=== PATIENT | male | born 1980 | race Caucasian/White ===

== ENCOUNTER 2020-11-20 13:41 | Inpatient (IN) | payer OTHER ==
[2020-11-20] MEDS ORDERED: CEFTRIAXONE 2 GM-D5W BAG 2 GM/50 ML BAG IVPB ONE (14:23)
[2020-11-20] MEDS ORDERED: CEFTRIAXONE 2 GM/100 ML BAG IVPB ONE (14:38)
[2020-11-20 14:43] LABS: BASO % 0.3 % (0-2.0); EOS % 0.1 % (0-4.5); HEMATOCRIT 35.6 % (35.4-49); HEMOGLOBIN 12.4 GM/dL (11.7-16.9); LYMPH % 3.9 % (8-40); MCHC 34.8 g/dl (32.0-35.9); MEAN CELL VOLUME 86.2 fl (80-96); MEAN PLT VOLUME 8.8 fl (7.5-11.1); NEUT % 88.7 % (42.8-82.8); PLATELET COUNT 174 10^3/uL (134-434); RBC 4.13 M/mm3 (4.00-5.60); RDW 12.1 % (11.9-15.9); WHITE BLOOD COUNT 15.4 K/mm3 (4.0-10.0)
[2020-11-20 14:50] LABS: INR 1.03 (0.83-1.09); PROTHROMBIN TIME (PATIENT) 12.5 SEC (9.7-13.0)
[2020-11-20 15:01] LABS: CHLORIDE 88 mmol/L (98-107); SODIUM 126 mmol/L (136-145)
[2020-11-20 15:03] LABS: ALBUMIN 3.2 g/dl (3.4-5.0); ANION GAP 14 MMOL/L (8-16); BLOOD UREA NITROGEN 9.3 mg/dL (7-18); CALCIUM 8.6 mg/dL (8.5-10.1); CO2 24 mmol/L (21-32)
[2020-11-20 15:06] LABS: SGOT/AST 14 U/L (15-37); SGPT/ALT 23 U/L (13-61)
[2020-11-20 15:07] LABS: CREATININE 0.8 mg/dL (0.55-1.3)
[2020-11-20 15:08] LABS: BILIRUBIN,TOTAL 0.6 mg/dL (0.2-1); TOT PROT 6.4 g/dl (6.4-8.2)
[2020-11-20 15:09] LABS: ALK PHOS 127 U/L (45-117)
[2020-11-20 15:29] LABS: ANISOCYTOSIS 1+; MACROCYTOSIS 0; OVALOCYTE 1+; PLATELET ESTIMATE NORMAL
[2020-11-20 15:45] LABS: GLUCOSE,RANDOM 477 mg/dL (74-106)
[2020-11-20] MEDS ORDERED: SODIUM CHLORIDE 0.9% 500 ML INFUS.BAG IV ONE (15:47)
[2020-11-20] MEDS ORDERED: INSULIN REGULAR HUMAN 100 UNITS/ML *VIAL IVPUSH ONE (15:47)
[2020-11-20] MEDS ORDERED: ACETAMINOPHEN 500 MG TABLET (FP) PO ONE (18:10)
[2020-11-20] MEDS ORDERED: ACETAMINOPHEN 500 MG TABLET (FP) ONE (19:12)
[2020-11-20] MEDS: INSULIN SLIDING SCALE (NOVOLOG) 1 VIAL SQ SCH (21:05)
[2020-11-20] MEDS: SODIUM CHLORIDE 1,000 ML IV SCH (21:16)
[2020-11-20] MEDS ORDERED: SENNOSIDES 8.6MG TABLET (FP) PO PRN (21:25)
[2020-11-21] MEDS ORDERED: CEFAZOLIN 1 GM/D5W 1 GM/50 ML BAG ONE (01:20)
[2020-11-21] MEDS: CEFAZOLIN 1 GM in DEXTROSE 5%-WATER - 50 ML IVPB SCH ×3 (01:30→17:12)
[2020-11-21 03:57] VITALS: BMI 24.4
[2020-11-21] MEDS ORDERED: MORPHINE SULFATE 2 MG/ML VIAL IM PRN (06:24)
[2020-11-21] MEDS: ACETAMINOPHEN 325 MG TABLET (FP) PO PRN ×4 (06:51→23:44)
[2020-11-21] MEDS ORDERED: INSULIN (NOVOLOG) ASPART 100 UNITS/ML 10ML VIAL ONE ×2 (06:52→17:25)
[2020-11-21] MEDS: INSULIN SLIDING SCALE (NOVOLOG) 1 VIAL SQ SCH ×4 (06:53→21:01)
[2020-11-21 07:17] LABS: BASO % 0.4 % (0-2.0); EOS % 0.2 % (0-4.5); HEMATOCRIT 30.7 % (35.4-49); HEMOGLOBIN 10.8 GM/dL (11.7-16.9); LYMPH % 4.8 % (8-40); MCH 30.4 pg (25.7-33.7); MCHC 35.2 g/dl (32.0-35.9); MEAN CELL VOLUME 86.4 fl (80-96); MEAN PLT VOLUME 8.9 fl (7.5-11.1); MONO % 9.4 % (3.8-10.2); NEUT % 85.2 % (42.8-82.8); PLATELET COUNT 162 10^3/uL (134-434); RBC 3.55 M/mm3 (4.00-5.60); RDW 12.3 % (11.9-15.9); WHITE BLOOD COUNT 13.5 K/mm3 (4.0-10.0)
[2020-11-21 07:45] LABS: BLOOD UREA NITROGEN 9.5 mg/dL (7-18); CALCIUM 7.8 mg/dL (8.5-10.1)
[2020-11-21 07:46] LABS: BILIRUBIN,TOTAL 0.6 mg/dL (0.2-1); TOT PROT 5.1 g/dl (6.4-8.2)
[2020-11-21 07:48] LABS: CREATININE 0.7 mg/dL (0.55-1.3)
[2020-11-21 07:51] LABS: ALBUMIN 2.3 g/dl (3.4-5.0)
[2020-11-21] MEDS ORDERED: DEXTROSE 5%-WATER - 50 ML IVPB ONE ×2 (09:56→15:21)
[2020-11-21] MEDS ORDERED: ceFAZolin SODIUM 1 GM VIAL ONE ×2 (09:56→15:21)
[2020-11-21] MEDS: ENOXAPARIN NA (PORCINE) 40 MG/0.4 ML DISP.SYRIN SQ SCH (09:58)
[2020-11-21] MEDS ORDERED: ENOXAPARIN NA (PORCINE) 30 MG/0.3 ML DISP.SYRIN SQ SCH (10:00)
[2020-11-22] MEDS ORDERED: ceFAZolin SODIUM 1 GM VIAL ONE ×3 (00:59→17:08)
[2020-11-22] MEDS ORDERED: DEXTROSE 5%-WATER - 50 ML IVPB ONE ×3 (00:59→17:09)
[2020-11-22] MEDS: CEFAZOLIN 1 GM in DEXTROSE 5%-WATER - 50 ML IVPB SCH ×3 (01:10→18:16)
[2020-11-22] MEDS: SODIUM CHLORIDE 1,000 ML IV SCH ×2 (01:12→22:48)
[2020-11-22] MEDS: ACETAMINOPHEN 325 MG TABLET (FP) PO PRN ×3 (05:46→17:13)
[2020-11-22] MEDS: INSULIN SLIDING SCALE (NOVOLOG) 1 VIAL SQ SCH ×4 (06:26→22:40)
[2020-11-22 08:51] LABS: BASO % 0.5 % (0-2.0); EOS % 7.8 % (0-4.5); HEMATOCRIT 31.5 % (35.4-49); HEMOGLOBIN 10.6 GM/dL (11.7-16.9); LYMPH % 11.9 % (8-40); MCH 31.5 pg (25.7-33.7); MCHC 33.6 g/dl (32.0-35.9); MEAN CELL VOLUME 93.7 fl (80-96); MEAN PLT VOLUME 7.6 fl (7.5-11.1); MONO % 8.4 % (3.8-10.2); NEUT % 71.4 % (42.8-82.8); PLATELET COUNT 271 10^3/uL (134-434); RBC 3.37 M/mm3 (4.00-5.60); RDW 15.9 % (11.9-15.9); WHITE BLOOD COUNT 9.7 K/mm3 (4.0-10.0)
[2020-11-22 09:23] LABS: BLOOD UREA NITROGEN 30.6 mg/dL (7-18); CALCIUM 8.4 mg/dL (8.5-10.1)
[2020-11-22 09:24] LABS: ALBUMIN 2.5 g/dl (3.4-5.0); MAGNESIUM 2.4 mg/dL (1.8-2.4)
[2020-11-22 09:26] LABS: CREATININE 1.6 mg/dL (0.55-1.3); PHOSPHOROUS 3.1 mg/dL (2.5-4.9)
[2020-11-22 09:27] LABS: BILIRUBIN,TOTAL 0.3 mg/dL (0.2-1)
[2020-11-22 09:41] LABS: TOT PROT 7.3 g/dl (6.4-8.2)
[2020-11-22] MEDS: ENOXAPARIN NA (PORCINE) 40 MG/0.4 ML DISP.SYRIN SQ SCH (10:16)
[2020-11-22 11:22] LABS: CALCIUM 7.5 mg/dL (8.5-10.1)
[2020-11-22 11:23] LABS: BLOOD UREA NITROGEN 8.9 mg/dL (7-18)
[2020-11-22] MEDS ORDERED: PT OWN MED DRAWER 7, Y5N ONE ×2 (11:25)
[2020-11-22 11:26] LABS: CREATININE 0.6 mg/dL (0.55-1.3)
[2020-11-22] MEDS ORDERED: INSULIN (NOVOLOG) ASPART 100 UNITS/ML 10ML VIAL ONE (11:26)
[2020-11-22] MEDS: oxyCODONE HCL 5 MG TABLET PO PRN (21:33)
[2020-11-22] MEDS: MAGNESIUM SULFATE 16 OZ CRYSTALS TP SCH (21:36)
[2020-11-23] MEDS: ACETAMINOPHEN 325 MG TABLET (FP) PO PRN ×4 (00:24→19:30)
[2020-11-23] MEDS ORDERED: DEXTROSE 5%-WATER - 50 ML IVPB ONE ×2 (01:08→09:42)
[2020-11-23] MEDS ORDERED: ceFAZolin SODIUM 1 GM VIAL ONE ×2 (01:08→09:42)
[2020-11-23] MEDS: CEFAZOLIN 1 GM in DEXTROSE 5%-WATER - 50 ML IVPB SCH ×2 (01:12→10:26)
[2020-11-23] MEDS: oxyCODONE HCL 5 MG TABLET PO PRN ×2 (05:18→22:04)
[2020-11-23] MEDS: INSULIN SLIDING SCALE (NOVOLOG) 1 VIAL SQ SCH ×4 (06:36→22:01)
[2020-11-23 07:53] LABS: BASO % 0.3 % (0-2.0); EOS % 0.3 % (0-4.5); HEMATOCRIT 30.1 % (35.4-49); HEMOGLOBIN 10.6 GM/dL (11.7-16.9); MCH 30.6 pg (25.7-33.7); MCHC 35.2 g/dl (32.0-35.9); MEAN CELL VOLUME 86.9 fl (80-96); MEAN PLT VOLUME 8.4 fl (7.5-11.1); MONO % 10.6 % (3.8-10.2); NEUT % 81.8 % (42.8-82.8); PLATELET COUNT 228 10^3/uL (134-434); RBC 3.46 M/mm3 (4.00-5.60); RDW 12.5 % (11.9-15.9); WHITE BLOOD COUNT 11.8 K/mm3 (4.0-10.0)
[2020-11-23 08:07] LABS: BLOOD UREA NITROGEN 7.8 mg/dL (7-18); CALCIUM 7.3 mg/dL (8.5-10.1); MAGNESIUM 1.7 mg/dL (1.8-2.4)
[2020-11-23 08:10] LABS: CREATININE 0.5 mg/dL (0.55-1.3)
[2020-11-23 08:11] LABS: BILIRUBIN,TOTAL 0.6 mg/dL (0.2-1)
[2020-11-23 08:23] LABS: TOT PROT 4.6 g/dl (6.4-8.2)
[2020-11-23] MEDS ORDERED: MAGNESIUM 2GM/50ML STERILE WATER IVPB IVPB ONE ×2 (10:30→15:00)
[2020-11-23] MEDS: MAGNESIUM SULFATE 16 OZ CRYSTALS TP SCH ×2 (10:36→21:53)
[2020-11-23] MEDS: ENOXAPARIN NA (PORCINE) 40 MG/0.4 ML DISP.SYRIN SQ SCH (10:37)
[2020-11-23] MEDS ORDERED: VANCOMYCIN 1 GM PREMIX - 1 GM/200 ML BAG IVPB ONE (11:00)
[2020-11-23] MEDS ORDERED: VANCOMYCIN 1 GRAM (PRE-DOCKED) 1 GM/200 ML BAG IVPB ONE (11:00)
[2020-11-23] MEDS ORDERED: DEXTROSE 5%-WATER 100 ML IVPB ONE (14:28)
[2020-11-23] MEDS: CEFTRIAXONE 2 GM in DEXTROSE 5%-WATER 2 GM/100 ML BAG IVPB SCH (14:59)
[2020-11-23] MEDS: SODIUM CHLORIDE 1,000 ML IV SCH ×2 (15:02→21:50)
[2020-11-23] MEDS: SODIUM PHOSPHATE - 30 MM in SODIUM CHLORIDE 500 ML IVPB ONE ×2 (15:09→19:33)
[2020-11-23] MEDS: VANCOMYCIN 1 GRAM (PRE-DOCKED) 1,000 MG/250 ML BAG IVPB SCH (15:45)
[2020-11-23] MEDS ORDERED: INSULIN (NOVOLOG) ASPART 100 UNITS/ML 10ML VIAL ONE (21:58)
[2020-11-24] MEDS: ACETAMINOPHEN 325 MG TABLET (FP) PO PRN ×4 (02:10→21:16)
[2020-11-24] MEDS: VANCOMYCIN 1 GRAM (PRE-DOCKED) 1,000 MG/250 ML BAG IVPB SCH ×2 (02:57→14:21)
[2020-11-24] MEDS: INSULIN SLIDING SCALE (NOVOLOG) 1 VIAL SQ SCH ×4 (06:27→21:20)
[2020-11-24 07:38] LABS: BASO % 0.3 % (0-2.0); EOS % 0.9 % (0-4.5); HEMATOCRIT 30.9 % (35.4-49); LYMPH % 8.5 % (8-40); MCH 31.1 pg (25.7-33.7); MCHC 35.6 g/dl (32.0-35.9); MEAN CELL VOLUME 87.3 fl (80-96); NEUT % 77.3 % (42.8-82.8); PLATELET COUNT 242 10^3/uL (134-434); RBC 3.54 M/mm3 (4.00-5.60); RDW 12.6 % (11.9-15.9); WHITE BLOOD COUNT 9.3 K/mm3 (4.0-10.0)
[2020-11-24 07:58] LABS: CALCIUM 7.5 mg/dL (8.5-10.1)
[2020-11-24 07:59] LABS: ALBUMIN 2.1 g/dl (3.4-5.0); BLOOD UREA NITROGEN 7.7 mg/dL (7-18); MAGNESIUM 1.9 mg/dL (1.8-2.4)
[2020-11-24 08:02] LABS: CREATININE 0.5 mg/dL (0.55-1.3); PHOSPHOROUS 2.6 mg/dL (2.5-4.9)
[2020-11-24 08:03] LABS: BILIRUBIN,TOTAL 0.5 mg/dL (0.2-1); TOT PROT 4.9 g/dl (6.4-8.2)
[2020-11-24] MEDS ORDERED: DEXTROSE 5%-WATER 100 ML IVPB ONE (09:25)
[2020-11-24] MEDS: ENOXAPARIN NA (PORCINE) 40 MG/0.4 ML DISP.SYRIN SQ SCH (09:40)
[2020-11-24] MEDS: MAGNESIUM SULFATE 16 OZ CRYSTALS TP SCH ×2 (09:40→22:18)
[2020-11-24] MEDS: CEFTRIAXONE 2 GM in DEXTROSE 5%-WATER 2 GM/100 ML BAG IVPB SCH (09:40)
[2020-11-24] MEDS: oxyCODONE HCL 5 MG TABLET PO PRN ×3 (09:45→21:15)
[2020-11-24] MEDS ORDERED: INSULIN (NOVOLOG) ASPART 100 UNITS/ML 10ML VIAL ONE ×2 (11:03→21:14)
[2020-11-24 13:24] LABS: ANISOCYTOSIS 0; MACROCYTOSIS 0; PLATELET ESTIMATE NORMAL
[2020-11-25] MEDS: VANCOMYCIN 1 GRAM (PRE-DOCKED) 1,000 MG/250 ML BAG IVPB SCH ×2 (02:09→13:56)
[2020-11-25] MEDS: oxyCODONE HCL 5 MG TABLET PO PRN ×3 (05:32→18:08)
[2020-11-25] MEDS: ACETAMINOPHEN 325 MG TABLET (FP) PO PRN ×3 (05:33→18:09)
[2020-11-25] MEDS: INSULIN SLIDING SCALE (NOVOLOG) 1 VIAL SQ SCH ×3 (06:37→16:28)
[2020-11-25 07:11] LABS: BASO % 0.8 % (0-2.0); EOS % 0.8 % (0-4.5); HEMATOCRIT 31.9 % (35.4-49); HEMOGLOBIN 11.2 GM/dL (11.7-16.9); LYMPH % 6.6 % (8-40); MCH 30.6 pg (25.7-33.7); MCHC 35.2 g/dl (32.0-35.9); MEAN CELL VOLUME 86.8 fl (80-96); MEAN PLT VOLUME 7.6 fl (7.5-11.1); MONO % 15.5 % (3.8-10.2); NEUT % 76.3 % (42.8-82.8); PLATELET COUNT 269 10^3/uL (134-434); RBC 3.67 M/mm3 (4.00-5.60); RDW 12.9 % (11.9-15.9); WHITE BLOOD COUNT 8.3 K/mm3 (4.0-10.0)
[2020-11-25 07:41] LABS: CALCIUM 7.3 mg/dL (8.5-10.1)
[2020-11-25 07:42] LABS: ALBUMIN 2.2 g/dl (3.4-5.0); BLOOD UREA NITROGEN 6.1 mg/dL (7-18); MAGNESIUM 1.6 mg/dL (1.8-2.4)
[2020-11-25 07:45] LABS: CREATININE 0.6 mg/dL (0.55-1.3); PHOSPHOROUS 2.6 mg/dL (2.5-4.9)
[2020-11-25 07:46] LABS: BILIRUBIN,TOTAL 0.8 mg/dL (0.2-1); TOT PROT 5.2 g/dl (6.4-8.2)
[2020-11-25] MEDS ORDERED: DEXTROSE 5%-WATER 100 ML IVPB ONE (08:24)
[2020-11-25] MEDS: ENOXAPARIN NA (PORCINE) 40 MG/0.4 ML DISP.SYRIN SQ SCH (09:08)
[2020-11-25 09:52] LABS: ANISOCYTOSIS 1+; MACROCYTOSIS 0; PLATELET ESTIMATE NORMAL
[2020-11-25] MEDS: CEFTRIAXONE 2 GM in DEXTROSE 5%-WATER 2 GM/100 ML BAG IVPB SCH (10:03)
[2020-11-25] MEDS: MAGNESIUM SULFATE 16 OZ CRYSTALS TP SCH ×2 (14:40→21:13)
[2020-11-25] MEDS ORDERED: INSULIN (LEVEMIR) 100 UNITS/ML UNITS SQ SCH (22:00)
[2020-11-26] MEDS: ACETAMINOPHEN 325 MG TABLET (FP) PO PRN ×4 (00:59→21:12)
[2020-11-26] MEDS: VANCOMYCIN 1 GRAM (PRE-DOCKED) 1,000 MG/250 ML BAG IVPB SCH (02:24)
[2020-11-26] MEDS: INSULIN SLIDING SCALE (NOVOLOG) 1 VIAL SQ SCH ×5 (06:16→23:00)
[2020-11-26] MEDS ORDERED: INSULIN (LEVEMIR) 100 UNITS/ML UNITS SQ SCH ×2 (07:00→22:00)
[2020-11-26 08:38] LABS: BASO % 0.3 % (0-2.0); HEMATOCRIT 32.9 % (35.4-49); HEMOGLOBIN 11.6 GM/dL (11.7-16.9); LYMPH % 9.9 % (8-40); MCH 30.3 pg (25.7-33.7); MCHC 35.2 g/dl (32.0-35.9); MEAN CELL VOLUME 86.2 fl (80-96); MEAN PLT VOLUME 7.7 fl (7.5-11.1); MONO % 16.6 % (3.8-10.2); NEUT % 72.2 % (42.8-82.8); PLATELET COUNT 313 10^3/uL (134-434); RBC 3.82 M/mm3 (4.00-5.60); RDW 12.8 % (11.9-15.9); WHITE BLOOD COUNT 7.4 K/mm3 (4.0-10.0)
[2020-11-26] MEDS ORDERED: INSULIN (NOVOLOG) ASPART 100 UNITS/ML 10ML VIAL ONE ×2 (08:42→18:29)
[2020-11-26] MEDS ORDERED: DEXTROSE 5%-WATER 100 ML IVPB ONE (08:43)
[2020-11-26] MEDS: MAGNESIUM SULFATE 16 OZ CRYSTALS TP SCH ×2 (09:00→23:57)
[2020-11-26 09:10] LABS: ALBUMIN 2.2 g/dl (3.4-5.0); CALCIUM 7.6 mg/dL (8.5-10.1)
[2020-11-26 09:11] LABS: BLOOD UREA NITROGEN 4.1 mg/dL (7-18); MAGNESIUM 1.9 mg/dL (1.8-2.4)
[2020-11-26 09:14] LABS: CREATININE 0.6 mg/dL (0.55-1.3); PHOSPHOROUS 2.9 mg/dL (2.5-4.9)
[2020-11-26 09:15] LABS: BILIRUBIN,TOTAL 0.6 mg/dL (0.2-1); TOT PROT 5.2 g/dl (6.4-8.2)
[2020-11-26] MEDS: oxyCODONE HCL 5 MG TABLET PO PRN ×2 (09:37→18:50)
[2020-11-26] MEDS: CEFTRIAXONE 2 GM in DEXTROSE 5%-WATER 2 GM/100 ML BAG IVPB SCH (09:38)
[2020-11-26 11:22] LABS: ANISOCYTOSIS 0; MACROCYTOSIS 0; PLATELET ESTIMATE NORMAL
[2020-11-26] MEDS ORDERED: VANCOMYCIN/WATER BAGS 1,250 MG/250 ML BAG IVPB SCH (14:00)
[2020-11-26] MEDS ORDERED: MIDAZOLAM HCL 2 MG/2 ML SINGLE DOSE VIAL ONE (16:24)
[2020-11-26] MEDS ORDERED: PROPOFOL 20 ML ONE (16:24)
[2020-11-26] MEDS ORDERED: LIDOCAINE HCL 1% EPINEPHRINE 1:200,000 30 ML VIAL (PF) ONE (17:11)
[2020-11-26] MEDS ORDERED: ONDANSETRON 4 MG/2 ML VIAL IVPUSH PRN ×2 (17:12→17:55)
[2020-11-26] MEDS ORDERED: SODIUM CHLORIDE 1,000 ML IV SCH (17:15)
[2020-11-26] MEDS ORDERED: VANCOMYCIN 1 GM PREMIX - 1 GM/200 ML BAG IVPB ONE (17:55)
[2020-11-26] MEDS ORDERED: SENNOSIDES 8.6MG TABLET (FP) PO PRN (17:55)
[2020-11-27] MEDS: VANCOMYCIN/WATER BAGS 1,250 MG/250 ML BAG IVPB SCH ×2 (03:32→14:40)
[2020-11-27] MEDS: ACETAMINOPHEN 325 MG TABLET (FP) PO PRN ×2 (03:42→18:23)
[2020-11-27] MEDS: INSULIN SLIDING SCALE (NOVOLOG) 1 VIAL SQ SCH ×4 (06:15→21:33)
[2020-11-27] MEDS ORDERED: INSULIN SLIDING SCALE (NOVOLOG) 1 VIAL SQ SCH (07:00)
[2020-11-27] MEDS ORDERED: INSULIN (LEVEMIR) 100 UNITS/ML UNITS SQ SCH (07:00)
[2020-11-27] MEDS ORDERED: PT OWN MED DRAWER 7, Y5N ONE ×3 (07:59→14:33)
[2020-11-27] MEDS ORDERED: DEXTROSE 5%-WATER 100 ML IVPB ONE (08:31)
[2020-11-27 08:32] LABS: BASO % 0.3 % (0-2.0); EOS % 0.9 % (0-4.5); HEMATOCRIT 31.7 % (35.4-49); HEMOGLOBIN 11.1 GM/dL (11.7-16.9); LYMPH % 11.8 % (8-40); MCH 30.8 pg (25.7-33.7); MCHC 35.1 g/dl (32.0-35.9); MEAN CELL VOLUME 87.6 fl (80-96); MEAN PLT VOLUME 7.9 fl (7.5-11.1); MONO % 17.1 % (3.8-10.2); NEUT % 69.9 % (42.8-82.8); PLATELET COUNT 343 10^3/uL (134-434); RBC 3.61 M/mm3 (4.00-5.60); RDW 12.7 % (11.9-15.9); WHITE BLOOD COUNT 7.9 K/mm3 (4.0-10.0)
[2020-11-27] MEDS: CEFTRIAXONE 2 GM in DEXTROSE 5%-WATER 2 GM/100 ML BAG IVPB SCH (09:00)
[2020-11-27] MEDS: MAGNESIUM SULFATE 16 OZ CRYSTALS TP SCH ×2 (09:00→21:40)
[2020-11-27 09:03] LABS: ALBUMIN 2.2 g/dl (3.4-5.0)
[2020-11-27 09:04] LABS: BLOOD UREA NITROGEN 4.4 mg/dL (7-18); CALCIUM 7.7 mg/dL (8.5-10.1); MAGNESIUM 1.9 mg/dL (1.8-2.4)
[2020-11-27 09:06] LABS: PHOSPHOROUS 3.8 mg/dL (2.5-4.9)
[2020-11-27 09:07] LABS: BILIRUBIN,TOTAL 0.6 mg/dL (0.2-1)
[2020-11-27 09:08] LABS: CREATININE 0.5 mg/dL (0.55-1.3); TOT PROT 5.2 g/dl (6.4-8.2)
[2020-11-27] MEDS: oxyCODONE HCL 5 MG TABLET PO PRN ×2 (09:16→21:50)
[2020-11-27] MEDS: ENOXAPARIN NA (PORCINE) 40 MG/0.4 ML DISP.SYRIN SQ SCH (09:17)
[2020-11-27] MEDS ORDERED: INSULIN (NOVOLOG) ASPART 100 UNITS/ML 10ML VIAL ONE ×2 (11:14→21:19)
[2020-11-27] MEDS: INSULIN (LEVEMIR) 100 UNITS/ML UNITS SQ SCH (21:36)
[2020-11-28] MEDS ORDERED: PT OWN MED DRAWER 7, Y5N ONE (02:40)
[2020-11-28] MEDS: VANCOMYCIN/WATER BAGS 1,250 MG/250 ML BAG IVPB SCH (02:43)
[2020-11-28] MEDS ORDERED: VANCOMYCIN HCL 1,500 MG in DEXTROSE 5%-WATER - 250 ML IVPB SCH (03:45)
[2020-11-28] MEDS: oxyCODONE HCL 5 MG TABLET PO PRN ×3 (05:43→21:28)
[2020-11-28] MEDS: INSULIN SLIDING SCALE (NOVOLOG) 1 VIAL SQ SCH ×6 (06:30→21:08)
[2020-11-28] MEDS: INSULIN (LEVEMIR) 100 UNITS/ML UNITS SQ SCH ×2 (06:32→21:10)
[2020-11-28] MEDS ORDERED: INSULIN (NOVOLOG) ASPART 100 UNITS/ML 10ML VIAL ONE ×3 (06:47→17:05)
[2020-11-28 08:01] LABS: BASO % 0.4 % (0-2.0); EOS % 1.1 % (0-4.5); HEMATOCRIT 31.3 % (35.4-49); HEMOGLOBIN 10.8 GM/dL (11.7-16.9); LYMPH % 12.6 % (8-40); MCH 30.4 pg (25.7-33.7); MCHC 34.5 g/dl (32.0-35.9); MEAN PLT VOLUME 7.8 fl (7.5-11.1); MONO % 12.2 % (3.8-10.2); NEUT % 73.7 % (42.8-82.8); PLATELET COUNT 388 10^3/uL (134-434); RBC 3.56 M/mm3 (4.00-5.60); RDW 12.6 % (11.9-15.9)
[2020-11-28 08:30] LABS: ALBUMIN 2.3 g/dl (3.4-5.0); BLOOD UREA NITROGEN 5.3 mg/dL (7-18)
[2020-11-28 08:31] LABS: BILIRUBIN,TOTAL 0.3 mg/dL (0.2-1); TOT PROT 5.2 g/dl (6.4-8.2)
[2020-11-28 08:32] LABS: CALCIUM 7.7 mg/dL (8.5-10.1)
[2020-11-28 08:33] LABS: CREATININE 0.5 mg/dL (0.55-1.3); MAGNESIUM 1.9 mg/dL (1.8-2.4); PHOSPHOROUS 4.2 mg/dL (2.5-4.9)
[2020-11-28] MEDS ORDERED: DEXTROSE 5%-WATER 100 ML IVPB ONE (09:06)
[2020-11-28] MEDS: CEFTRIAXONE 2 GM in DEXTROSE 5%-WATER 2 GM/100 ML BAG IVPB SCH (09:23)
[2020-11-28] MEDS: MAGNESIUM SULFATE 16 OZ CRYSTALS TP SCH ×2 (09:24→21:07)
[2020-11-28] MEDS: ENOXAPARIN NA (PORCINE) 40 MG/0.4 ML DISP.SYRIN SQ SCH (09:24)
[2020-11-28] MEDS ORDERED: VANCOMYCIN/WATER BAGS 1,250 MG/250 ML BAG IVPB SCH ×2 (10:00→22:00)
[2020-11-28 10:32] LABS: ANISOCYTOSIS 1+; MACROCYTOSIS 0; OVALOCYTE 1+; PLATELET ESTIMATE NORMAL; TARGET CELLS 1+
[2020-11-28] MEDS: ACETAMINOPHEN 325 MG TABLET (FP) PO PRN (17:07)
[2020-11-28] MEDS ORDERED: VANCOMYCIN PREMIX 1.5 GM 1,500 MG/300 ML BAG IVPB SCH (22:00)
[2020-11-28] MEDS: VANCOMYCIN 1 GRAM (PRE-DOCKED) 1,000 MG/250 ML BAG IVPB SCH (23:13)
[2020-11-29] MEDS: ACETAMINOPHEN 325 MG TABLET (FP) PO PRN ×4 (00:57→23:16)
[2020-11-29] MEDS: oxyCODONE HCL 5 MG TABLET PO PRN ×3 (05:38→23:14)
[2020-11-29] MEDS: INSULIN (LEVEMIR) 100 UNITS/ML UNITS SQ SCH ×2 (06:54→22:10)
[2020-11-29] MEDS: INSULIN SLIDING SCALE (NOVOLOG) 1 VIAL SQ SCH ×4 (06:56→22:09)
[2020-11-29 07:45] LABS: BASO % 0.6 % (0-2.0); EOS % 2.1 % (0-4.5); HEMATOCRIT 33.2 % (35.4-49); HEMOGLOBIN 11.6 GM/dL (11.7-16.9); LYMPH % 21.4 % (8-40); MCH 30.4 pg (25.7-33.7); MEAN CELL VOLUME 86.8 fl (80-96); MEAN PLT VOLUME 7.5 fl (7.5-11.1); MONO % 11.5 % (3.8-10.2); NEUT % 64.4 % (42.8-82.8); PLATELET COUNT 437 10^3/uL (134-434); RBC 3.83 M/mm3 (4.00-5.60); RDW 12.7 % (11.9-15.9)
[2020-11-29 08:04] LABS: ALBUMIN 2.6 g/dl (3.4-5.0); BLOOD UREA NITROGEN 6.9 mg/dL (7-18); CALCIUM 8.1 mg/dL (8.5-10.1)
[2020-11-29 08:06] LABS: PHOSPHOROUS 4.1 mg/dL (2.5-4.9)
[2020-11-29 08:07] LABS: CREATININE 0.5 mg/dL (0.55-1.3)
[2020-11-29 08:08] LABS: BILIRUBIN,TOTAL 0.6 mg/dL (0.2-1)
[2020-11-29] MEDS ORDERED: DEXTROSE 5%-WATER 100 ML IVPB ONE (09:21)
[2020-11-29] MEDS: CEFTRIAXONE 2 GM in DEXTROSE 5%-WATER 2 GM/100 ML BAG IVPB SCH (09:27)
[2020-11-29] MEDS: MAGNESIUM SULFATE 16 OZ CRYSTALS TP SCH ×2 (09:27→22:11)
[2020-11-29] MEDS: ENOXAPARIN NA (PORCINE) 40 MG/0.4 ML DISP.SYRIN SQ SCH (09:28)
[2020-11-29] MEDS ORDERED: VANCOMYCIN/WATER BAGS 1,250 MG/250 ML BAG IVPB SCH (10:00)
[2020-11-29 10:14] LABS: ANISOCYTOSIS 0; MACROCYTOSIS 0; PLATELET ESTIMATE NORMAL
[2020-11-29] MEDS: VANCOMYCIN 1 GRAM (PRE-DOCKED) 1,000 MG/250 ML BAG IVPB SCH (11:03)
[2020-11-29] MEDS: glipiZIDE 10 MG TABLET (FP) PO SCH (17:11)
[2020-11-30] MEDS: VANCOMYCIN 1 GRAM (PRE-DOCKED) 1,000 MG/250 ML BAG IVPB SCH ×2 (00:01→13:16)
[2020-11-30] MEDS ORDERED: VANCOMYCIN PREMIX 1.5 GM 1,500 MG/300 ML BAG IVPB SCH (00:30)
[2020-11-30] MEDS ORDERED: glipiZIDE 5 MG TABLET (FP) ONE ×2 (05:25→17:06)
[2020-11-30] MEDS: oxyCODONE HCL 5 MG TABLET PO PRN ×3 (05:32→19:48)
[2020-11-30] MEDS: ACETAMINOPHEN 325 MG TABLET (FP) PO PRN ×3 (05:33→19:49)
[2020-11-30] MEDS: glipiZIDE 10 MG TABLET (FP) PO SCH ×2 (06:26→17:30)
[2020-11-30 06:38] LABS: BASO % 0.6 % (0-2.0); EOS % 1.5 % (0-4.5); HEMATOCRIT 31.3 % (35.4-49); HEMOGLOBIN 10.9 GM/dL (11.7-16.9); MCH 30.1 pg (25.7-33.7); MEAN CELL VOLUME 86.1 fl (80-96); MONO % 10.4 % (3.8-10.2); NEUT % 69.5 % (42.8-82.8); PLATELET COUNT 423 10^3/uL (134-434); RBC 3.63 M/mm3 (4.00-5.60); RDW 12.8 % (11.9-15.9); WHITE BLOOD COUNT 6.1 K/mm3 (4.0-10.0)
[2020-11-30 06:53] LABS: ALBUMIN 2.5 g/dl (3.4-5.0); BLOOD UREA NITROGEN 7.1 mg/dL (7-18); CALCIUM 8.1 mg/dL (8.5-10.1); MAGNESIUM 1.8 mg/dL (1.8-2.4)
[2020-11-30 06:56] LABS: CREATININE 0.5 mg/dL (0.55-1.3); PHOSPHOROUS 4.5 mg/dL (2.5-4.9)
[2020-11-30 06:58] LABS: BILIRUBIN,TOTAL 0.5 mg/dL (0.2-1); TOT PROT 5.5 g/dl (6.4-8.2)
[2020-11-30] MEDS: INSULIN (LEVEMIR) 100 UNITS/ML UNITS SQ SCH ×2 (07:05→21:00)
[2020-11-30] MEDS: INSULIN SLIDING SCALE (NOVOLOG) 1 VIAL SQ SCH ×4 (07:42→21:00)
[2020-11-30 09:52] LABS: ANISOCYTOSIS 0; HELMET CELLS 0; HOWELL-JOLLY BODIES 0; MACROCYTOSIS 0; OVALOCYTE 0; PLATELET ESTIMATE NORMAL; ROULEAU 0; SICKELED CELLS 0; TARGET CELLS 0; TEAR DROP CELLS 0; TOXIC GRANULATION 0
[2020-11-30] MEDS ORDERED: DEXTROSE 5%-WATER 100 ML IVPB ONE (10:39)
[2020-11-30] MEDS: CEFTRIAXONE 2 GM in DEXTROSE 5%-WATER 2 GM/100 ML BAG IVPB SCH (10:49)
[2020-11-30] MEDS: ENOXAPARIN NA (PORCINE) 40 MG/0.4 ML DISP.SYRIN SQ SCH (10:50)
[2020-11-30] MEDS: MAGNESIUM SULFATE 16 OZ CRYSTALS TP SCH ×2 (13:16→21:00)
[2020-11-30] MEDS ORDERED: PT OWN MED DRAWER 7, Y5N ONE (17:10)
[2020-11-30] MEDS: VANCOMYCIN/WATER BAGS 1,250 MG/250 ML BAG IVPB SCH (21:01)
[2020-11-30] MEDS: MELATONIN 5 MG TABLETS PO PRN (22:36)
[2020-12-01] MEDS ORDERED: glipiZIDE 5 MG TABLET (FP) ONE ×2 (06:05→16:53)
[2020-12-01] MEDS: glipiZIDE 10 MG TABLET (FP) PO SCH ×2 (06:06→17:03)
[2020-12-01] MEDS: INSULIN (LEVEMIR) 100 UNITS/ML UNITS SQ SCH ×2 (06:12→21:30)
[2020-12-01] MEDS: INSULIN SLIDING SCALE (NOVOLOG) 1 VIAL SQ SCH ×4 (06:12→21:31)
[2020-12-01] MEDS: oxyCODONE HCL 5 MG TABLET PO PRN ×3 (06:13→21:41)
[2020-12-01] MEDS: ACETAMINOPHEN 325 MG TABLET (FP) PO PRN (06:13)
[2020-12-01 08:38] LABS: BASO % 0.8 % (0-2.0); EOS % 0.9 % (0-4.5); HEMATOCRIT 35.4 % (35.4-49); HEMOGLOBIN 12.2 GM/dL (11.7-16.9); LYMPH % 19.4 % (8-40); MCH 30.3 pg (25.7-33.7); MCHC 34.6 g/dl (32.0-35.9); MEAN CELL VOLUME 87.6 fl (80-96); MEAN PLT VOLUME 7.1 fl (7.5-11.1); MONO % 7.8 % (3.8-10.2); NEUT % 71.1 % (42.8-82.8); PLATELET COUNT 521 10^3/uL (134-434); RBC 4.04 M/mm3 (4.00-5.60); WHITE BLOOD COUNT 6.8 K/mm3 (4.0-10.0)
[2020-12-01 09:20] LABS: BILIRUBIN,TOTAL 0.3 mg/dL (0.2-1)
[2020-12-01 09:21] LABS: TOT PROT 6.7 g/dl (6.4-8.2)
[2020-12-01 09:23] LABS: BLOOD UREA NITROGEN 8.8 mg/dL (7-18)
[2020-12-01 09:34] LABS: CALCIUM 8.8 mg/dL (8.5-10.1)
[2020-12-01 09:37] LABS: CREATININE 0.6 mg/dL (0.55-1.3)
[2020-12-01 09:41] LABS: ALBUMIN 3.1 g/dl (3.4-5.0)
[2020-12-01] MEDS ORDERED: DEXTROSE 5%-WATER 100 ML IVPB ONE (09:47)
[2020-12-01] MEDS: MAGNESIUM SULFATE 16 OZ CRYSTALS TP SCH ×2 (09:55→21:30)
[2020-12-01] MEDS: ENOXAPARIN NA (PORCINE) 40 MG/0.4 ML DISP.SYRIN SQ SCH (10:18)
[2020-12-01] MEDS: CEFTRIAXONE 2 GM in DEXTROSE 5%-WATER 2 GM/100 ML BAG IVPB SCH (10:19)
[2020-12-01] MEDS: VANCOMYCIN/WATER BAGS 1,250 MG/250 ML BAG IVPB SCH ×2 (11:59→21:29)
[2020-12-01] MEDS ORDERED: INSULIN (NOVOLOG) ASPART 100 UNITS/ML 10ML VIAL ONE ×2 (17:05→20:33)
[2020-12-01] MEDS: MELATONIN 5 MG TABLETS PO PRN (21:41)
[2020-12-02] MEDS: ACETAMINOPHEN 325 MG TABLET (FP) PO PRN (01:34)
[2020-12-02] MEDS ORDERED: glipiZIDE 5 MG TABLET (FP) ONE (05:39)
[2020-12-02] MEDS: glipiZIDE 10 MG TABLET (FP) PO SCH ×2 (06:21→17:05)
[2020-12-02] MEDS: INSULIN SLIDING SCALE (NOVOLOG) 1 VIAL SQ SCH ×4 (06:21→21:15)
[2020-12-02] MEDS: INSULIN (LEVEMIR) 100 UNITS/ML UNITS SQ SCH ×2 (06:21→21:17)
[2020-12-02 08:21] LABS: BASO % 0.7 % (0-2.0); HEMATOCRIT 36.9 % (35.4-49); HEMOGLOBIN 12.7 GM/dL (11.7-16.9); LYMPH % 24.5 % (8-40); MCH 30.2 pg (25.7-33.7); MCHC 34.3 g/dl (32.0-35.9); MONO % 8.7 % (3.8-10.2); NEUT % 65.1 % (42.8-82.8); PLATELET COUNT 537 10^3/uL (134-434); RDW 13.3 % (11.9-15.9); WHITE BLOOD COUNT 7.7 K/mm3 (4.0-10.0)
[2020-12-02 08:38] LABS: CALCIUM 8.7 mg/dL (8.5-10.1)
[2020-12-02 08:39] LABS: ALBUMIN 3.1 g/dl (3.4-5.0); BLOOD UREA NITROGEN 10.8 mg/dL (7-18)
[2020-12-02 08:42] LABS: CREATININE 0.6 mg/dL (0.55-1.3); PHOSPHOROUS 4.1 mg/dL (2.5-4.9)
[2020-12-02 08:44] LABS: BILIRUBIN,TOTAL 0.4 mg/dL (0.2-1)
[2020-12-02 08:45] LABS: TOT PROT 6.7 g/dl (6.4-8.2)
[2020-12-02 09:11] LABS: ANISOCYTOSIS 1+; MACROCYTOSIS 1+; PLATELET ESTIMATE INCREASED
[2020-12-02] MEDS: MAGNESIUM SULFATE 16 OZ CRYSTALS TP SCH ×2 (09:25→21:18)
[2020-12-02] MEDS ORDERED: DEXTROSE 5%-WATER 100 ML IVPB ONE (09:27)
[2020-12-02] MEDS: CEFTRIAXONE 2 GM in DEXTROSE 5%-WATER 2 GM/100 ML BAG IVPB SCH (09:42)
[2020-12-02] MEDS: ENOXAPARIN NA (PORCINE) 40 MG/0.4 ML DISP.SYRIN SQ SCH (09:45)
[2020-12-02] MEDS: oxyCODONE HCL 5 MG TABLET PO PRN ×2 (10:36→20:26)
[2020-12-02] MEDS: VANCOMYCIN/WATER BAGS 1,250 MG/250 ML BAG IVPB SCH (11:40)
[2020-12-02] MEDS: VANCOMYCIN PREMIX 1.5 GM 1,500 MG/300 ML BAG IVPB SCH (20:26)
[2020-12-02] MEDS: MELATONIN 5 MG TABLETS PO PRN (21:20)
[2020-12-03] MEDS: glipiZIDE 10 MG TABLET (FP) PO SCH ×2 (06:25→17:51)
[2020-12-03] MEDS: INSULIN (LEVEMIR) 100 UNITS/ML UNITS SQ SCH ×2 (06:26→21:38)
[2020-12-03] MEDS: INSULIN SLIDING SCALE (NOVOLOG) 1 VIAL SQ SCH ×4 (06:26→21:38)
[2020-12-03] MEDS ORDERED: INSULIN (NOVOLOG) ASPART 100 UNITS/ML 10ML VIAL ONE ×4 (06:29→21:20)
[2020-12-03 09:13] LABS: BASO % 0.6 % (0-2.0); HEMATOCRIT 34.9 % (35.4-49); HEMOGLOBIN 12.2 GM/dL (11.7-16.9); MCH 30.6 pg (25.7-33.7); MCHC 34.9 g/dl (32.0-35.9); MEAN CELL VOLUME 87.8 fl (80-96); MEAN PLT VOLUME 7.3 fl (7.5-11.1); NEUT % 69.4 % (42.8-82.8); PLATELET COUNT 498 10^3/uL (134-434); RBC 3.98 M/mm3 (4.00-5.60); RDW 13.2 % (11.9-15.9); WHITE BLOOD COUNT 5.8 K/mm3 (4.0-10.0)
[2020-12-03] MEDS ORDERED: PT OWN MED DRAWER 7, Y5N ONE ×3 (09:24→20:11)
[2020-12-03] MEDS ORDERED: DEXTROSE 5%-WATER 100 ML IVPB ONE (09:25)
[2020-12-03 09:31] LABS: BILIRUBIN,TOTAL 0.3 mg/dL (0.2-1)
[2020-12-03 09:32] LABS: TOT PROT 6.4 g/dl (6.4-8.2)
[2020-12-03 09:33] LABS: CALCIUM 8.7 mg/dL (8.5-10.1); CREATININE 0.6 mg/dL (0.55-1.3); MAGNESIUM 1.8 mg/dL (1.8-2.4); PHOSPHOROUS 3.9 mg/dL (2.5-4.9)
[2020-12-03] MEDS: MAGNESIUM SULFATE 16 OZ CRYSTALS TP SCH ×3 (09:56→22:23)
[2020-12-03] MEDS: VANCOMYCIN PREMIX 1.5 GM 1,500 MG/300 ML BAG IVPB SCH ×2 (09:56→20:13)
[2020-12-03] MEDS: ENOXAPARIN NA (PORCINE) 40 MG/0.4 ML DISP.SYRIN SQ SCH (09:57)
[2020-12-03] MEDS: CEFTRIAXONE 2 GM in DEXTROSE 5%-WATER 2 GM/100 ML BAG IVPB SCH (11:29)
[2020-12-03] MEDS: oxyCODONE HCL 5 MG TABLET PO PRN ×2 (11:32→20:19)
[2020-12-03] MEDS ORDERED: glipiZIDE 5 MG TABLET (FP) ONE (17:20)
[2020-12-03] MEDS: LACTOBACILLUS ACIDOPHILUS 1 TABLET PO SCH (21:38)
[2020-12-03] MEDS: SODIUM HYPOCHLORITE 0.25%- 473 ML BULK BOTTLE TP SCH (21:39)
[2020-12-04] MEDS: oxyCODONE HCL 5 MG TABLET PO PRN ×3 (02:04→19:14)
[2020-12-04] MEDS: MELATONIN 5 MG TABLETS PO PRN (02:06)
[2020-12-04] MEDS ORDERED: INSULIN (NOVOLOG) ASPART 100 UNITS/ML 10ML VIAL ONE (06:19)
[2020-12-04] MEDS ORDERED: glipiZIDE 5 MG TABLET (FP) ONE ×2 (06:19→17:10)
[2020-12-04] MEDS: INSULIN SLIDING SCALE (NOVOLOG) 1 VIAL SQ SCH ×4 (06:26→21:19)
[2020-12-04 07:45] LABS: BASO % 1.1 % (0-2.0); HEMATOCRIT 34.6 % (35.4-49); HEMOGLOBIN 11.9 GM/dL (11.7-16.9); LYMPH % 22.7 % (8-40); MCH 30.2 pg (25.7-33.7); MCHC 34.4 g/dl (32.0-35.9); MEAN CELL VOLUME 87.7 fl (80-96); MONO % 9.1 % (3.8-10.2); NEUT % 66.1 % (42.8-82.8); PLATELET COUNT 435 10^3/uL (134-434); RBC 3.95 M/mm3 (4.00-5.60); RDW 13.3 % (11.9-15.9)
[2020-12-04 07:57] LABS: CALCIUM 8.8 mg/dL (8.5-10.1)
[2020-12-04 07:58] LABS: BLOOD UREA NITROGEN 10.3 mg/dL (7-18)
[2020-12-04 08:01] LABS: CREATININE 0.5 mg/dL (0.55-1.3)
[2020-12-04 08:02] LABS: PHOSPHOROUS 4.2 mg/dL (2.5-4.9)
[2020-12-04 08:03] LABS: BILIRUBIN,TOTAL 0.3 mg/dL (0.2-1); TOT PROT 6.4 g/dl (6.4-8.2)
[2020-12-04] MEDS: INSULIN (LEVEMIR) 100 UNITS/ML UNITS SQ SCH ×2 (09:15→21:18)
[2020-12-04] MEDS: glipiZIDE 10 MG TABLET (FP) PO SCH ×2 (09:17→17:13)
[2020-12-04] MEDS ORDERED: PT OWN MED DRAWER 7, Y5N ONE ×2 (10:21→20:44)
[2020-12-04] MEDS: VANCOMYCIN PREMIX 1.5 GM 1,500 MG/300 ML BAG IVPB SCH ×2 (10:27→21:21)
[2020-12-04] MEDS: ENOXAPARIN NA (PORCINE) 40 MG/0.4 ML DISP.SYRIN SQ SCH (10:29)
[2020-12-04] MEDS ORDERED: DEXTROSE 5%-WATER 100 ML IVPB ONE (12:56)
[2020-12-04] MEDS: CEFTRIAXONE 2 GM in DEXTROSE 5%-WATER 2 GM/100 ML BAG IVPB SCH (13:02)
[2020-12-04] MEDS: SODIUM HYPOCHLORITE 0.25%- 473 ML BULK BOTTLE TP SCH (13:02)
[2020-12-04] MEDS: MAGNESIUM SULFATE 16 OZ CRYSTALS TP SCH ×2 (13:03→21:18)
[2020-12-04] MEDS: ACETAMINOPHEN 325 MG TABLET (FP) PO PRN (19:15)
[2020-12-04] MEDS: LACTOBACILLUS ACIDOPHILUS 1 TABLET PO SCH (21:18)
[2020-12-05] MEDS ORDERED: glipiZIDE 5 MG TABLET (FP) ONE ×2 (05:24→15:23)
[2020-12-05] MEDS: ACETAMINOPHEN 325 MG TABLET (FP) PO PRN ×3 (05:50→20:38)
[2020-12-05] MEDS: oxyCODONE HCL 5 MG TABLET PO PRN ×3 (05:50→20:38)
[2020-12-05] MEDS: INSULIN SLIDING SCALE (NOVOLOG) 1 VIAL SQ SCH ×4 (06:54→21:21)
[2020-12-05] MEDS: glipiZIDE 10 MG TABLET (FP) PO SCH ×2 (08:35→17:33)
[2020-12-05] MEDS: INSULIN (LEVEMIR) 100 UNITS/ML UNITS SQ SCH (08:36)
[2020-12-05] MEDS ORDERED: DEXTROSE 5%-WATER 100 ML IVPB ONE (08:53)
[2020-12-05 08:59] LABS: BASO % 1.2 % (0-2.0); EOS % 0.8 % (0-4.5); HEMATOCRIT 36.8 % (35.4-49); HEMOGLOBIN 12.8 GM/dL (11.7-16.9); LYMPH % 14.9 % (8-40); MCH 30.7 pg (25.7-33.7); MCHC 34.9 g/dl (32.0-35.9); MEAN CELL VOLUME 88.2 fl (80-96); MEAN PLT VOLUME 7.2 fl (7.5-11.1); MONO % 8.1 % (3.8-10.2); PLATELET COUNT 481 10^3/uL (134-434); RBC 4.17 M/mm3 (4.00-5.60); RDW 13.3 % (11.9-15.9)
[2020-12-05] MEDS ORDERED: PT OWN MED DRAWER 7, Y5N ONE ×2 (08:59→20:46)
[2020-12-05 09:14] LABS: ALBUMIN 3.4 g/dl (3.4-5.0); CALCIUM 8.8 mg/dL (8.5-10.1)
[2020-12-05 09:15] LABS: BLOOD UREA NITROGEN 10.9 mg/dL (7-18); MAGNESIUM 1.8 mg/dL (1.8-2.4)
[2020-12-05 09:18] LABS: CREATININE 0.6 mg/dL (0.55-1.3); PHOSPHOROUS 4.3 mg/dL (2.5-4.9)
[2020-12-05 09:19] LABS: BILIRUBIN,TOTAL 0.5 mg/dL (0.2-1); TOT PROT 6.8 g/dl (6.4-8.2)
[2020-12-05] MEDS: VANCOMYCIN PREMIX 1.5 GM 1,500 MG/300 ML BAG IVPB SCH (09:19)
[2020-12-05] MEDS ORDERED: INSULIN (NOVOLOG) ASPART 100 UNITS/ML 10ML VIAL ONE (10:21)
[2020-12-05] MEDS: SODIUM HYPOCHLORITE 0.25%- 473 ML BULK BOTTLE TP SCH (10:55)
[2020-12-05] MEDS: MAGNESIUM SULFATE 16 OZ CRYSTALS TP SCH ×3 (10:56→23:31)
[2020-12-05] MEDS: ENOXAPARIN NA (PORCINE) 40 MG/0.4 ML DISP.SYRIN SQ SCH (10:56)
[2020-12-05] MEDS: CEFTRIAXONE 2 GM in DEXTROSE 5%-WATER 2 GM/100 ML BAG IVPB SCH (11:13)
[2020-12-05] MEDS: LACTOBACILLUS ACIDOPHILUS 1 TABLET PO SCH (21:14)
[2020-12-05] MEDS: VANCOMYCIN PREMIX 1.75 GM 1,750 MG/350 ML PIGGYBACK IVPB SCH (21:14)
[2020-12-06] MEDS: oxyCODONE HCL 5 MG TABLET PO PRN ×3 (05:26→18:47)
[2020-12-06] MEDS: ACETAMINOPHEN 325 MG TABLET (FP) PO PRN ×3 (05:26→18:47)
[2020-12-06] MEDS: INSULIN SLIDING SCALE (NOVOLOG) 1 VIAL SQ SCH ×4 (06:04→21:37)
[2020-12-06] MEDS: INSULIN (LEVEMIR) 100 UNITS/ML UNITS SQ SCH (06:05)
[2020-12-06] MEDS: SODIUM HYPOCHLORITE 0.25%- 473 ML BULK BOTTLE TP SCH ×2 (06:10→09:13)
[2020-12-06] MEDS ORDERED: DEXTROSE 5%-WATER 100 ML IVPB ONE (08:39)
[2020-12-06] MEDS: ENOXAPARIN NA (PORCINE) 40 MG/0.4 ML DISP.SYRIN SQ SCH (09:12)
[2020-12-06] MEDS: MAGNESIUM SULFATE 16 OZ CRYSTALS TP SCH ×2 (09:13→21:35)
[2020-12-06 09:40] LABS: BASO % 2.8 % (0-2.0); EOS % 1.7 % (0-4.5); HEMATOCRIT 35.4 % (35.4-49); HEMOGLOBIN 12.4 GM/dL (11.7-16.9); LYMPH % 28.5 % (8-40); MCH 30.7 pg (25.7-33.7); MCHC 34.9 g/dl (32.0-35.9); MEAN CELL VOLUME 87.8 fl (80-96); MEAN PLT VOLUME 7.5 fl (7.5-11.1); MONO % 11.9 % (3.8-10.2); NEUT % 55.1 % (42.8-82.8); PLATELET COUNT 384 10^3/uL (134-434); RBC 4.04 M/mm3 (4.00-5.60); RDW 13.4 % (11.9-15.9)
[2020-12-06 10:06] LABS: CALCIUM 8.8 mg/dL (8.5-10.1)
[2020-12-06] MEDS ORDERED: INSULIN (NOVOLOG) ASPART 100 UNITS/ML 10ML VIAL ONE ×2 (10:06→20:40)
[2020-12-06 10:07] LABS: ALBUMIN 3.3 g/dl (3.4-5.0); MAGNESIUM 1.8 mg/dL (1.8-2.4)
[2020-12-06 10:10] LABS: CREATININE 0.5 mg/dL (0.55-1.3); PHOSPHOROUS 3.4 mg/dL (2.5-4.9)
[2020-12-06 10:11] LABS: BILIRUBIN,TOTAL 0.4 mg/dL (0.2-1); TOT PROT 6.4 g/dl (6.4-8.2)
[2020-12-06] MEDS: VANCOMYCIN PREMIX 1.75 GM 1,750 MG/350 ML PIGGYBACK IVPB SCH ×2 (10:23→21:34)
[2020-12-06] MEDS: CEFTRIAXONE 2 GM in DEXTROSE 5%-WATER 2 GM/100 ML BAG IVPB SCH (12:48)
[2020-12-06] MEDS: MELATONIN 5 MG TABLETS PO PRN (21:34)
[2020-12-06] MEDS: LACTOBACILLUS ACIDOPHILUS 1 TABLET PO SCH (21:34)
[2020-12-07] MEDS: ACETAMINOPHEN 325 MG TABLET (FP) PO PRN ×2 (01:06→09:01)
[2020-12-07] MEDS: INSULIN (LEVEMIR) 100 UNITS/ML UNITS SQ SCH (06:24)
[2020-12-07] MEDS: INSULIN SLIDING SCALE (NOVOLOG) 1 VIAL SQ SCH ×4 (06:26→21:28)
[2020-12-07] MEDS ORDERED: INSULIN (NOVOLOG) ASPART 100 UNITS/ML 10ML VIAL ONE ×2 (06:28→11:26)
[2020-12-07] MEDS ORDERED: DEXTROSE 5%-WATER 100 ML IVPB ONE (08:15)
[2020-12-07] MEDS: oxyCODONE HCL 5 MG TABLET PO PRN (09:00)
[2020-12-07] MEDS: ENOXAPARIN NA (PORCINE) 40 MG/0.4 ML DISP.SYRIN SQ SCH (09:09)
[2020-12-07] MEDS: MAGNESIUM SULFATE 16 OZ CRYSTALS TP SCH ×2 (09:10→21:29)
[2020-12-07] MEDS: SODIUM HYPOCHLORITE 0.25%- 473 ML BULK BOTTLE TP SCH (09:10)
[2020-12-07] MEDS: VANCOMYCIN PREMIX 1.75 GM 1,750 MG/350 ML PIGGYBACK IVPB SCH ×2 (10:39→22:04)
[2020-12-07] MEDS: CEFTRIAXONE 2 GM in DEXTROSE 5%-WATER 2 GM/100 ML BAG IVPB SCH (13:00)
[2020-12-07 13:28] LABS: BASO % 1.9 % (0-2.0); HEMATOCRIT 35.6 % (35.4-49); HEMOGLOBIN 12.4 GM/dL (11.7-16.9); LYMPH % 29.5 % (8-40); MCH 30.6 pg (25.7-33.7); MCHC 34.8 g/dl (32.0-35.9); MEAN CELL VOLUME 87.8 fl (80-96); MONO % 10.3 % (3.8-10.2); NEUT % 56.3 % (42.8-82.8); PLATELET COUNT 329 10^3/uL (134-434); RBC 4.06 M/mm3 (4.00-5.60); RDW 13.6 % (11.9-15.9); WHITE BLOOD COUNT 5.3 K/mm3 (4.0-10.0)
[2020-12-07 13:54] LABS: ALBUMIN 3.2 g/dl (3.4-5.0); BLOOD UREA NITROGEN 10.7 mg/dL (7-18); CALCIUM 8.3 mg/dL (8.5-10.1)
[2020-12-07 13:55] LABS: MAGNESIUM 1.8 mg/dL (1.8-2.4)
[2020-12-07 13:57] LABS: CREATININE 0.6 mg/dL (0.55-1.3); PHOSPHOROUS 4.3 mg/dL (2.5-4.9)
[2020-12-07 13:59] LABS: BILIRUBIN,TOTAL 0.4 mg/dL (0.2-1); TOT PROT 6.2 g/dl (6.4-8.2)
[2020-12-07] MEDS: LACTOBACILLUS ACIDOPHILUS 1 TABLET PO SCH (21:27)
[2020-12-07] MEDS: MELATONIN 5 MG TABLETS PO PRN (21:28)
[2020-12-08] MEDS: INSULIN (LEVEMIR) 100 UNITS/ML UNITS SQ SCH (06:19)
[2020-12-08] MEDS: INSULIN SLIDING SCALE (NOVOLOG) 1 VIAL SQ SCH ×4 (06:19→22:36)
[2020-12-08 08:07] LABS: BASO % 2.7 % (0-2.0); EOS % 2.2 % (0-4.5); HEMATOCRIT 35.3 % (35.4-49); HEMOGLOBIN 12.3 GM/dL (11.7-16.9); LYMPH % 27.2 % (8-40); MCH 30.5 pg (25.7-33.7); MCHC 34.8 g/dl (32.0-35.9); MEAN CELL VOLUME 87.7 fl (80-96); MEAN PLT VOLUME 7.4 fl (7.5-11.1); MONO % 10.8 % (3.8-10.2); NEUT % 57.1 % (42.8-82.8); PLATELET COUNT 304 10^3/uL (134-434); RBC 4.02 M/mm3 (4.00-5.60); RDW 13.5 % (11.9-15.9); WHITE BLOOD COUNT 4.1 K/mm3 (4.0-10.0)
[2020-12-08 08:18] LABS: CALCIUM 8.8 mg/dL (8.5-10.1)
[2020-12-08 08:19] LABS: ALBUMIN 3.4 g/dl (3.4-5.0); BLOOD UREA NITROGEN 10.3 mg/dL (7-18)
[2020-12-08 08:21] LABS: MAGNESIUM 1.7 mg/dL (1.8-2.4)
[2020-12-08 08:22] LABS: CREATININE 0.6 mg/dL (0.55-1.3); PHOSPHOROUS 3.6 mg/dL (2.5-4.9)
[2020-12-08 08:23] LABS: BILIRUBIN,TOTAL 0.4 mg/dL (0.2-1)
[2020-12-08 08:24] LABS: TOT PROT 6.4 g/dl (6.4-8.2)
[2020-12-08] MEDS ORDERED: INSULIN (NOVOLOG) ASPART 100 UNITS/ML 10ML VIAL ONE ×2 (08:53→20:38)
[2020-12-08] MEDS ORDERED: MAGNESIUM SULF 50% (8.12 MEQ/2 ML-1 GM VIAL) IVPB ONE (09:00)
[2020-12-08] MEDS: MAGNESIUM SULFATE 16 OZ CRYSTALS TP SCH ×2 (09:49→22:10)
[2020-12-08] MEDS: SODIUM HYPOCHLORITE 0.25%- 473 ML BULK BOTTLE TP SCH ×2 (09:49→22:35)
[2020-12-08] MEDS: VANCOMYCIN PREMIX 1.75 GM 1,750 MG/350 ML PIGGYBACK IVPB SCH (13:36)
[2020-12-08] MEDS ORDERED: DEXTROSE 5%-WATER 100 ML IVPB ONE (16:17)
[2020-12-08] MEDS: CEFTRIAXONE 2 GM in DEXTROSE 5%-WATER 2 GM/100 ML BAG IVPB SCH (17:52)
[2020-12-08] MEDS: ACETAMINOPHEN 325 MG TABLET (FP) PO PRN (17:59)
[2020-12-08] MEDS: oxyCODONE HCL 5 MG TABLET PO PRN (18:00)
[2020-12-08] MEDS: LACTOBACILLUS ACIDOPHILUS 1 TABLET PO SCH (22:10)
[2020-12-08] MEDS: VANCOMYCIN PREMIX 1.5 GM 1,500 MG/300 ML BAG IVPB SCH (23:17)
[2020-12-09] MEDS: oxyCODONE HCL 5 MG TABLET PO PRN ×3 (00:34→21:39)
[2020-12-09] MEDS: MELATONIN 5 MG TABLETS PO PRN ×2 (00:35→21:39)
[2020-12-09] MEDS: INSULIN (LEVEMIR) 100 UNITS/ML UNITS SQ SCH (06:48)
[2020-12-09] MEDS: INSULIN SLIDING SCALE (NOVOLOG) 1 VIAL SQ SCH ×4 (06:48→22:13)
[2020-12-09 08:00] LABS: BASO % 2.1 % (0-2.0); EOS % 3.3 % (0-4.5); HEMATOCRIT 36.3 % (35.4-49); HEMOGLOBIN 12.7 GM/dL (11.7-16.9); LYMPH % 35.3 % (8-40); MCH 30.6 pg (25.7-33.7); MCHC 35.1 g/dl (32.0-35.9); MEAN CELL VOLUME 87.1 fl (80-96); MEAN PLT VOLUME 7.8 fl (7.5-11.1); MONO % 13.1 % (3.8-10.2); NEUT % 46.2 % (42.8-82.8); PLATELET COUNT 296 10^3/uL (134-434); RBC 4.17 M/mm3 (4.00-5.60); RDW 13.3 % (11.9-15.9)
[2020-12-09 08:15] LABS: ALBUMIN 3.4 g/dl (3.4-5.0); CALCIUM 8.4 mg/dL (8.5-10.1)
[2020-12-09 08:16] LABS: BLOOD UREA NITROGEN 9.7 mg/dL (7-18); MAGNESIUM 1.9 mg/dL (1.8-2.4)
[2020-12-09 08:19] LABS: CREATININE 0.6 mg/dL (0.55-1.3); PHOSPHOROUS 3.4 mg/dL (2.5-4.9)
[2020-12-09 08:20] LABS: BILIRUBIN,TOTAL 0.5 mg/dL (0.2-1); TOT PROT 6.3 g/dl (6.4-8.2)
[2020-12-09] MEDS ORDERED: DEXTROSE 5%-WATER 100 ML IVPB ONE (09:26)
[2020-12-09] MEDS: VANCOMYCIN PREMIX 1.5 GM 1,500 MG/300 ML BAG IVPB SCH ×2 (10:36→21:39)
[2020-12-09] MEDS: CEFTRIAXONE 2 GM in DEXTROSE 5%-WATER 2 GM/100 ML BAG IVPB SCH (10:37)
[2020-12-09] MEDS: SODIUM HYPOCHLORITE 0.25%- 473 ML BULK BOTTLE TP SCH ×2 (10:38→21:43)
[2020-12-09] MEDS: MAGNESIUM SULFATE 16 OZ CRYSTALS TP SCH ×2 (11:11→21:46)
[2020-12-09] MEDS: ACETAMINOPHEN 325 MG TABLET (FP) PO PRN (14:43)
[2020-12-09] MEDS ORDERED: INSULIN (NOVOLOG) ASPART 100 UNITS/ML 10ML VIAL ONE ×2 (17:59→22:01)
[2020-12-09] MEDS: LACTOBACILLUS ACIDOPHILUS 1 TABLET PO SCH (21:38)
[2020-12-10] MEDS: INSULIN SLIDING SCALE (NOVOLOG) 1 VIAL SQ SCH ×2 (06:15→11:29)
[2020-12-10] MEDS: INSULIN (LEVEMIR) 100 UNITS/ML UNITS SQ SCH (06:16)
[2020-12-10 07:27] VITALS: PULSE 80
[2020-12-10 08:11] LABS: BASO % 2.9 % (0-2.0); EOS % 4.3 % (0-4.5); HEMATOCRIT 35.2 % (35.4-49); HEMOGLOBIN 12.1 GM/dL (11.7-16.9); LYMPH % 31.8 % (8-40); MCHC 34.2 g/dl (32.0-35.9); MEAN CELL VOLUME 87.7 fl (80-96); MEAN PLT VOLUME 7.9 fl (7.5-11.1); MONO % 10.8 % (3.8-10.2); NEUT % 50.2 % (42.8-82.8); PLATELET COUNT 223 10^3/uL (134-434); RBC 4.02 M/mm3 (4.00-5.60); RDW 13.6 % (11.9-15.9); WHITE BLOOD COUNT 2.9 K/mm3 (4.0-10.0)
[2020-12-10 08:32] LABS: ALBUMIN 3.2 g/dl (3.4-5.0); BLOOD UREA NITROGEN 6.7 mg/dL (7-18); CALCIUM 8.5 mg/dL (8.5-10.1); MAGNESIUM 1.7 mg/dL (1.8-2.4)
[2020-12-10 08:35] LABS: CREATININE 0.5 mg/dL (0.55-1.3); PHOSPHOROUS 3.8 mg/dL (2.5-4.9)
[2020-12-10 08:37] LABS: BILIRUBIN,TOTAL 0.4 mg/dL (0.2-1)
[2020-12-10] MEDS ORDERED: DEXTROSE 5%-WATER 100 ML IVPB ONE (09:18)
[2020-12-10] MEDS ORDERED: INSULIN (NOVOLOG) ASPART 100 UNITS/ML 10ML VIAL ONE (09:18)
[2020-12-10] MEDS: MAGNESIUM SULFATE 16 OZ CRYSTALS TP SCH (09:29)
[2020-12-10] MEDS: CEFTRIAXONE 2 GM in DEXTROSE 5%-WATER 2 GM/100 ML BAG IVPB SCH (09:29)
[2020-12-10] MEDS: SODIUM HYPOCHLORITE 0.25%- 473 ML BULK BOTTLE TP SCH (09:30)
[2020-12-10] MEDS: oxyCODONE HCL 5 MG TABLET PO PRN (09:46)
[2020-12-10] MEDS: VANCOMYCIN PREMIX 1.5 GM 1,500 MG/300 ML BAG IVPB SCH (11:30)
[2020-12-10] MEDS ORDERED: MAGNESIUM OXIDE 400 MG TABLET (FP) PO ONE (12:17)
[2020-12-10 14:49] VITALS: BP 124/67; TEMP 98.3
== END 2020-12-10 18:26 | disposition home or self-care (01) | DRG 710 ==
LOC: JER 13:41 → JERBED 19:04 → J7W 11-21 03:05
PROVIDERS: ADMIT Internal Medicine; ATTEND Internal Medicine
PROC: 0J990ZZ Drainage of Buttock Subcutaneous Tissue and Fascia, Open Approach (ICD-10-PCS; principal; 2020-11-26 16:30)
DX: A41.89 Other specified sepsis (principal); I10 Essential (primary) hypertension; K21.9 Gastro-esophageal reflux disease without esophagitis; E11.65 Type 2 diabetes mellitus with hyperglycemia; L02.31 Cutaneous abscess of buttock; D72.829 Elevated white blood cell count, unspecified; L03.317 Cellulitis of buttock; E87.1 Hypo-osmolality and hyponatremia; M54.9 Dorsalgia, unspecified; R19.7 Diarrhea, unspecified
CPT/HCPCS: 36415; 71045-TC-FY; 72193-TC; 74177-TC; 80048; 80053; 82962; 82977; 83036; 83605; 83735; 84100; 85025; 85610; 85730; 87040; 87070; 87076; 87077; 87186; 87205; 87324; 87449; 93005; 93010; 94010; 94760; 99285-25; C9803; G0480; J3370; Q9967; U0003; U0005